=== PATIENT | male | born 1985 | race Caucasian/White ===

== ENCOUNTER 2018-04-29 15:47 | Emergency (ER) | payer BC, MEDICAID ==
--- NOTE | 2018-04-29 17:28 | EDPHY ---
H & P Time Seen by Provider: 04/29/18 17:07 HPI/ROS: CHIEF COMPLAINT: Blood in stool HISTORY OF PRESENT ILLNESS: Patient is a 32-year-old male who presents emergency department with bloody diarrhea. The patient recently was in [place] for 12 days. He returned Wednesday. He has had numerous episodes of diarrhea over the past couple of days. Today he had bright red blood in his diarrhea. He denies significant abdominal pain. He has occasional lower abdominal cramping. He has had no fevers or chills. No nausea or vomiting. No rectal pain. No foreign body. REVIEW OF SYSTEMS: 10 systems were reveiwed and are negative with the exception of the elements mentioned in the history of present illness. Past Medical/Surgical History: Includes orthopedic injury Smoking Status: Never smoked Physical Exam: Vitals noted GENERAL: Well-appearing, in no acute distress, alert. HEENT: Eyes normal to inspection, normal pharynx, no signs of dehydration. NECK: Normal, supple. RESPIRATORY: Clear to auscultation bilaterally, no rales, rhonchi or wheezing. CVS: Regular rate and rhythm, no rubs, murmurs, or gallops. ABDOMEN: Soft, nontender, nondistended, no organomegaly. Benign BACK: Normal to inspection, no CVA tenderness. SKIN: Normal color, no rash, warm, dry. No pallor. EXTREMITIES: No pedal edema, no joint swelling. NEURO/PSYCH: Alert and oriented, normal mood and affect, normal motor sensory exam. No obvious cranial nerve deficit. Constitutional: Initial Vital Signs Temperature (C) 37.2 C 04/29/18 15:51 Heart Rate 69 04/29/18 15:51 Respiratory Rate 16 04/29/18 15:51 Blood Pressure 137/87 H 04/29/18 15:51 O2 Sat (%) 98 04/29/18 15:51 Allergies/Adverse Reactions: No Known Drug Allergies Allergy (Verified 04/29/18 15:55) Medical Decision Making ED Course/Re-evaluation: In the emergency department I discussed possible etiologies with the patient. I answered all her questions. IV was placed. Laboratory studies were obtained. Patient's CBC and chemistry unremarkable. Coags are pending. Coags are negative Discussed the result with the patient. Answered all his questions. Patient was given warnings prior to leaving. He will return with worsening symptoms. At this time I do not feel the patient needs antibiotic treatment. Patient was given follow-up with Gastroenterology. Call Wednesday morning to make the appointment. Differential Diagnosis: My differential includes but is not limited to diarrhea, infectious diarrhea, mass, malignancy, diverticulitis - Data Points Laboratory Results: Laboratory Results 04/29/18 17:12 04/29/18 17:12 04/29/18 04/29/18 04/29/18 17:12 17:12 17:12 WBC 7.15 10^3/uL 10^3/uL (3.80-9.50) RBC 5.09 10^6/uL 10^6/uL (4.40-6.38) Hgb 15.0 g/dL g/dL (13.7-17.5) Hct 43.2 % % (40.0-51.0) MCV 84.9 fL fL (81.5-99.8) MCH 29.5 pg pg (27.9-34.1) MCHC 34.7 g/dL g/dL (32.4-36.7) RDW 13.7 % % (11.5-15.2) Plt Count 168 10^3/uL 10^3/uL (150-400) MPV 9.9 fL fL (8.7-11.7) Neut % (Auto) 80.5 % H % (39.3-74.2) Lymph % (Auto) 11.7 % L % (15.0-45.0) [place] % (Auto) 6.3 % % (4.5-13.0) Eos % (Auto) 1.1 % % (0.6-7.6) Baso % (Auto) 0.1 % L % (0.3-1.7) Nucleat RBC Rel Count 0.0 % % (0.0-0.2) Absolute Neuts (auto) 5.75 10^3/uL 10^3/uL (1.70-6.50) Absolute Lymphs (auto) 0.84 10^3/uL L 10^3/uL (1.00-3.00) Absolute Monos (auto) 0.45 10^3/uL 10^3/uL (0.30-0.80) Absolute Eos (auto) 0.08 10^3/uL 10^3/uL (0.03-0.40) Absolute Basos (auto) 0.01 10^3/uL L 10^3/uL (0.02-0.10) Absolute Nucleated RBC 0.00 10^3/uL 10^3/uL (0-0.01) Immature Gran % 0.3 % % (0.0-1.1) Immature Gran # 0.02 10^3/uL 10^3/uL (0.00-0.10) PT 13.9 SEC SEC (12.0-15.0) INR 1.11 (0.83-1.16) APTT 30.8 SEC SEC (23.0-38.0) Sodium 135 mEq/L mEq/L (135-145) Potassium 4.3 mEq/L mEq/L (3.5-5.2) Chloride 106 mEq/L mEq/L (97-110) Carbon Dioxide 21 mEq/l L mEq/l (22-31) Anion Gap 8 mEq/L mEq/L (6-14) BUN 9 mg/dL mg/dL (7-23) Creatinine 1.0 mg/dL mg/dL (0.7-1.3) Estimated GFR > 60 Glucose 84 mg/dL mg/dL (70-100) Calcium 9.3 mg/dL mg/dL (8.5-10.4) Departure - Departure Disposition: Home, Routine, Self-Care Clinical Impression: Diarrhea Qualifiers: Diarrhea type: presumed infectious Qualified Code(s): R19.7 - Diarrhea, unspecified Condition: Good Instructions: Acute Diarrhea (ED) Additional Instructions: Return with increasing pain, persistent fever, vomiting or any other concerns. I do not recommend starting antibiotics at this time without a stool sample. You need to call Gastroenterology on Wednesday morning to make an appointment. Referrals: Chacho Foreman MD [Medical Doctor] - 5-7 days, call for appt.
[2018-04-29 17:54] LABS: PLATELET COUNT 168 10^3/uL (150-400)
[2018-04-29 18:08] LABS: INR 1.11 (0.83-1.16); PROTIME(PATIENT) 13.9 SEC (12.0-15.0)
[2018-04-29 19:05] VITALS: BP 123/74
== END 2018-04-29 19:03 | disposition home or self-care (01) ==
DX: R19.7 Diarrhea, unspecified (principal)